=== PATIENT | female | born 1990 | race Two or more races ===

== ENCOUNTER → 2017-03-02 | Outpatient (REF) | payer OTHER | LOC: M LAB REF 19:53 | PROVIDERS: ATTEND Physician Assistant | DX: J02.9 Acute pharyngitis, unspecified (principal) ==

== ENCOUNTER → 2017-05-17 | Outpatient (REF) | payer OTHER ==
[~2017-05-17] MED LIST: NO MEDICATIONS
== END ==
LOC: M SFHCWAGY 14:04
PROVIDERS: ATTEND Nurse Practitioner Women's Health
DX: Z12.4 Encounter for screening for malignant neoplasm of cervix (principal); R87.613 High grade squamous intraepithelial lesion on cytologic smear of cervix (HGSIL)

== ENCOUNTER → 2017-05-23 | Outpatient (REF) | payer OTHER | LOC: M SFHCWAGY 14:19 | PROVIDERS: ATTEND Nurse Practitioner Women's Health | DX: R87.613 High grade squamous intraepithelial lesion on cytologic smear of cervix (HGSIL) (principal) ==

== ENCOUNTER 2017-05-27 11:59 | Day surgery (SDC) | payer OTHER ==
[~2017-05-27] VITALS: Ht 162.6 cm; Wt 87.5 kg
[2017-05-27] MEDS ORDERED: LIDOCAINE 1% SDV 5 ML VIAL SQ ONE (12:30)
[2017-05-27] MEDS ORDERED: LR 1,000 ML IV ONE (12:30)
[2017-05-27 12:49] LABS: CONTROL LINE UCG INT CTR LINE PRESENT
[2017-05-27] MEDS ORDERED: NEOSTIGMINE 10 MG/10 ML VIAL (J2710) As Ordered ONE (12:58)
[2017-05-27] MEDS ORDERED: MIDAZOLAM INJ 2 MG/2 ML VIAL (J2250) As Ordered ONE (12:58)
[2017-05-27] MEDS ORDERED: GLYCOPYRROLATE INJ 0.2 MG/ML 2 ML VIAL As Ordered ONE (12:58)
[2017-05-27] MEDS ORDERED: LIDOCAINE 2% INJ 100 MG/5 ML SDV (FOR ANES.) As Ordered ONE (12:58)
[2017-05-27] MEDS ORDERED: PROPOFOL 200 MG/20 ML VIAL As Ordered ONE (12:58)
[2017-05-27] MEDS ORDERED: ONDANSETRON 4MG/2ML VIAL (J2405) As Ordered ONE ×2 (12:58→17:14)
[2017-05-27] MEDS ORDERED: ROCURONIUM BROMIDE 50 MG/5 ML VIAL As Ordered ONE (12:58)
[2017-05-27] MEDS ORDERED: fentaNYL 100 MCG/2 ML INJECTION (J3010) As Ordered ONE ×2 (12:59→15:57)
[2017-05-27] MEDS ORDERED: PERC5TAB12 PO (14:13)
[2017-05-27] MEDS ORDERED: BUPIVACAINE HCL 0.25% 30 ML VIAL As Ordered ONE (14:49)
[2017-05-27] MEDS ORDERED: KETOROLAC 60 MG/2 ML VIAL (J1885) As Ordered ONE (15:34)
[2017-05-27] MEDS ORDERED: ALBUTEROL SULFATE 2.5 MG/0.5 ML INH NEB SOLN As Ordered ONE (15:49)
[2017-05-27] MEDS ORDERED: LR 1,000 ML IV SCH ×2 (16:00→16:15)
[2017-05-27] MEDS ORDERED: ONDANSETRON 4MG/2ML VIAL (J2405) IV PRN (16:00)
[2017-05-27] MEDS: fentaNYL 100 MCG/2 ML INJECTION (J3010) IV PRN ×4 (16:00→16:15)
[2017-05-27] MEDS ORDERED: PERCOCET 5MG/325MG TAB PO PRN (16:00)
[2017-05-27] MEDS ORDERED: ALBUTEROL SULFATE 2.5 MG/0.5 ML INH NEB SOLN INH ONE (16:30)
[2017-05-27] MEDS ORDERED: PERCOCET 5MG/325MG TAB As Ordered ONE (17:12)
[2017-05-27 18:45] VITALS: BP 120/76
--- NOTE | 2017-05-30 09:15 | RO ---
DATE OF PROCEDURE: 05/27/2017 PREOPERATIVE DIAGNOSIS: Undesired fertility. POSTOPERATIVE DIAGNOSIS: Undesired fertility. PROCEDURE: Laparoscopic tubal ligation with Falope rings. SURGEON: Dr. Kyle Crespo SHOT COAT TENDER: ANESTHESIA: General endotracheal. ESTIMATED BLOOD LOSS: Minimal. FINDINGS: Normal pelvis with the exception of some mild adhesions of the uterus to the anterior abdominal wall. Normal fallopian tubes and ovaries. Normal upper abdomen. Omental adhesions to the midline below the umbilicus. OPERATIVE SUMMARY: The patient was taken to the operating room where general endotracheal anesthesia was induced. She was prepped and draped in a sterile fashion in the dorsal lithotomy position. The bladder was emptied with a catheter. A sponge stick was placed. A periumbilical incision was made with the scalpel. A Veress needle was placed through this incision while tenting up on the skin of the abdomen. Intra-abdominal location of the Veress needle was assessed by the use of a saline filled syringe. A pneumoperitoneum was created. The Veress needle was removed. A 5 mm trocar using Visiport was inserted through this incision. An 8 mm suprapubic port was placed under direct visualization without difficulty. A blunt probe was used to survey pelvic structures. A Falope ring was applied to the mid portion of each fallopian tube. An excellent application was noted. The pneumoperitoneum was released. All instruments were removed. The skin was closed with #4-0 Monocryl subcuticular sutures. Sponge, instrument and needle counts were correct.
== END 2017-05-27 18:55 | disposition home or self-care (01) ==
LOC: M SDC 11:59
PROVIDERS: ATTEND Specialist
DX: Z30.2 Encounter for sterilization (principal); F17.210 Nicotine dependence, cigarettes, uncomplicated
CPT/HCPCS: 36415; 58671; 84703; 85014; 85018; A4264; J1885; J2250; J2405; J2710; J3010

== ENCOUNTER → 2017-07-21 | Outpatient (REF) | payer OTHER | LOC: M LAB REF 08:22 | DX: R87.613 High grade squamous intraepithelial lesion on cytologic smear of cervix (HGSIL) (principal) ==

== ENCOUNTER 2018-11-27 15:20 | Emergency (ER) | payer MEDICAID, OTHER ==
[~2018-11-27] VITALS: Ht 162.6 cm; Wt 68.2 kg
[~2018-11-27 15:20] MED LIST changes: +PERC5TAB12 PO
[2018-11-27] MEDS ORDERED: ADACEL/BOOSTRIX VACCINE (DIPHTH/PERTUSS/ACELL/TETANUS)0.5ML SYR (90715) IM ONE (16:00)
[2018-11-27 16:41] VITALS: BP 128/83
[2018-11-27] MEDS ORDERED: IBUPROFEN 800 MG TAB PO ONE (16:45)
[2018-11-28] MEDS ORDERED: NEOSPORIN TOP OINT 15GM TOP ONE (09:00)
== END 2018-11-27 16:42 | disposition home or self-care (01) ==
LOC: M ED 15:20
DX: S91.214A Laceration without foreign body of right lesser toe(s) with damage to nail, initial encounter (principal); W22.8XXA Striking against or struck by other objects, initial encounter; Y92.018 Other place in single-family (private) house as the place of occurrence of the external cause; Z88.5 Allergy status to narcotic agent

== ENCOUNTER 2018-12-17 10:02 | Emergency (ER) | payer MEDICAID, OTHER ==
[~2018-12-17] VITALS: Ht 154.9 cm; Wt 68.2 kg
[2018-12-17] MEDS ORDERED: LIDOCAINE 1% MDV 20ML VIAL IM ONE (14:00)
[2018-12-17 14:27] VITALS: BP 138/79
[2018-12-17] MEDS ORDERED: NORC1TAB7 PO ×3 (14:35→14:44)
[2018-12-17] MEDS ORDERED: AUGM875T28 PO (14:35)
--- NOTE | 2018-12-17 16:48 | IPN ---
DATE: 12/17/2018 28-year-old female with four days of worsening vulvar pain and swelling. She presented to the emergency room (ER) at [facility] where she was seen by her provider. She denies drainage from the swollen area. She has had this once before. She denies fevers. OBJECTIVE: Afebrile. Blood pressure (BP) 130/74, pulse 84. She appears uncomfortable to observation. Head and neck exam is normal. Lungs are clear. Heart: Regular rate and rhythm. Abdomen: Nontender, soft, not distended. 2 cm geraldo-clitoral abscess with induration of the anterior labial minora and surrounding cellulitis and clitoral cueto. PROCEDURE NOTE: The patient was consented for incision and drainage of geraldo-clitoral abscess. The area was prepped with Betadine solution. The area was injected with 3 mL of 1% lidocaine. A scalpel was used to excise the abscess overlying the clitoral cueto. A large amount of pus extruded from the incision. Bacterial culture was performed. Excess pus was expressed from the wound. The patient tolerated the procedure well. ASSESSMENT: 28-year-old with geraldo-clitoral abscess status post incision and drainage in the emergency department. PLAN: Start Augmentin 875 mg twice a day for 7 days. Percocet or similar narcotic for pain relief for the next couple of days. The patient will followup in the office in one week. Of note, the patient is overdue for a Pap smear test. Perhaps this could be done at her followup office visit if she is not too uncomfortable at that time. OLAMIDE
== END 2018-12-17 14:58 | disposition home or self-care (01) ==
LOC: M ED 10:02
DX: N90.89 Other specified noninflammatory disorders of vulva and perineum (principal); Z11.51 Encounter for screening for human papillomavirus (HPV); Z87.59 Personal history of other complications of pregnancy, childbirth and the puerperium; K80.20 Calculus of gallbladder without cholecystitis without obstruction; Z87.891 Personal history of nicotine dependence; F12.10 Cannabis abuse, uncomplicated; Z88.5 Allergy status to narcotic agent

== ENCOUNTER → 2018-12-25 | Outpatient (REF) | payer OTHER ==
[~2018-12-25] MED LIST changes: +AUGM875T28 PO; +NORC1TAB7 PO
== END ==
LOC: M LAB REF 13:17
PROVIDERS: ATTEND Specialist
DX: N89.0 Mild vaginal dysplasia (principal); Z12.4 Encounter for screening for malignant neoplasm of cervix

== ENCOUNTER → 2019-03-21 | Outpatient (REF) | payer OTHER | LOC: M LAB REF 09:21 | PROVIDERS: ATTEND Nurse Practitioner Family | DX: N39.0 Urinary tract infection, site not specified (principal) ==

== ENCOUNTER → 2020-04-04 | Outpatient (REF) | payer OTHER | LOC: M SFHCWAGY 17:03 | PROVIDERS: ATTEND Specialist | DX: Z20.2 Contact with and (suspected) exposure to infections with a predominantly sexual mode of transmission (principal) ==

== ENCOUNTER 2020-05-04 11:05 | Emergency (ER) | payer OTHER ==
[~2020-05-04] VITALS: Ht 162.6 cm; Wt 80.3 kg
[2020-05-04] MEDS ORDERED: FLUO20CA22 PO (11:12)
[2020-05-04] MEDS ORDERED: LIDOCAINE 1% SDV 5ML VIAL DILUENT ONE (11:45)
[2020-05-04] MEDS ORDERED: cefTRIAXone SOD 1GM VIAL (J0696 PER 250MG) IM ONE (11:45)
[2020-05-04 12:05] LABS: BASO % 0.3 % (0.0-1.0); EOS % 0.3 % (0.0-3.0); HEMOGLOBIN 13.9 g/dl (12.0-15.5); LYMPH # 0.8 10^3/uL (1.5-5.0); LYMPH % 6.4 % (24.0-44.0); MEAN CORPUSCULAR HEMOGLOBIN 31.4 pg (27.0-33.0); MEAN CORPUSCULAR HGB CONC 33.1 g/dl (32.0-36.5); MONO % 8.5 % (0.0-5.0); NEUTROPHILS # 10.1 10^3/uL (1.5-8.5); NEUTROPHILS % 84.2 % (36.0-66.0); PLATELET COUNT, AUTOMATED 150 10^3/uL (150-450); RED BLOOD COUNT 4.42 10^6/uL (4.00-5.40); WHITE BLOOD COUNT 11.9 10^3/uL (4.0-10.0)
[2020-05-04 12:26] LABS: BLOOD UREA NITROGEN 12 MG/DL (7-18); CALCIUM LEVEL 9.1 MG/DL (8.5-10.1); CARBON DIOXIDE LEVEL 31 MEQ/L (21-32); CHLORIDE LEVEL 104 MEQ/L (98-107); CREATININE FOR GFR 0.78 MG/DL (0.55-1.30); GLOMERULAR FILTRATION RATE > 60.0 (>60); GLUCOSE, FASTING 100 MG/DL (70-100); POTASSIUM SERUM 3.4 MEQ/L (3.5-5.1); SODIUM LEVEL 138 MEQ/L (136-145)
[2020-05-04] MEDS ORDERED: CEFD1CAP8 PO (13:16)
[2020-05-04] MEDS ORDERED: ONDA4TAB6 PO (13:16)
[2020-05-04 13:29] VITALS: BP 143/76
== END 2020-05-04 13:31 | disposition home or self-care (01) ==
LOC: M ED 11:05
DX: N15.9 Renal tubulo-interstitial disease, unspecified (principal); F32.9 Major depressive disorder, single episode, unspecified; F17.200 Nicotine dependence, unspecified, uncomplicated; Z88.5 Allergy status to narcotic agent; Z79.899 Other long term (current) drug therapy
CPT/HCPCS: 36415; 80048; 81001; 85025; 87088; 87186; 99284; J0696

== ENCOUNTER 2022-09-18 10:26 | Emergency (ER) | payer OTHER ==
[~2022-09-18] VITALS: Ht 162.6 cm; Wt 84.6 kg
[~2022-09-18 10:26] MED LIST changes: +CEFD300C41 PO; +FLUO20CA22 PO; +ONDA4TAB6 PO
[2022-09-18] MEDS ORDERED: ACET500P3 PO (10:45)
[2022-09-18] MEDS ORDERED: IBUP-1114 PO (10:45)
[2022-09-18] MEDS ORDERED: ALBUTEROL SULFATE 2.5MG/0.5ML INH NEB SOLN NEB ONE (11:00)
[2022-09-18] MEDS ORDERED: AMOX875T2 PO (12:12)
[2022-09-18] MEDS ORDERED: VENTAER INH (12:12)
[2022-09-18 12:24] VITALS: BP 118/72
== END 2022-09-18 12:26 | disposition home or self-care (01) ==
LOC: M ED 10:26
DX: J20.9 Acute bronchitis, unspecified (principal); J01.90 Acute sinusitis, unspecified; F41.9 Anxiety disorder, unspecified; F32.A Depression, unspecified; Z88.5 Allergy status to narcotic agent

== ENCOUNTER → 2023-01-14 | Outpatient (REF) | payer OTHER ==
[~2023-01-14] MED LIST changes: +ACET500P3 PO; +AMOX875T2 PO; +IBUP-1114 PO; +VENTAER INH
[2023-01-14 12:06] LABS: BASO % 0.6 % (0.0-1.0); EOS # 0.1 10^3/uL (0.0-0.5); EOS % 2.6 % (0.0-3.0); HEMATOCRIT 43.2 % (36.0-47.0); HEMOGLOBIN 14.6 g/dl (12.0-15.5); LYMPH # 1.3 10^3/uL (1.5-5.0); LYMPH % 24.1 % (24.0-44.0); MEAN CORPUSCULAR HEMOGLOBIN 31.3 pg (27.0-33.0); MEAN CORPUSCULAR HGB CONC 33.8 g/dl (32.0-36.5); MEAN CORPUSCULAR VOLUME 92.7 fl (80.0-96.0); MONO # 0.4 10^3/uL (0.0-0.8); MONO % 7.1 % (2.0-8.0); NEUTROPHILS # 3.5 10^3/uL (1.5-8.5); NEUTROPHILS % 65.2 % (36.0-66.0); PLATELET COUNT, AUTOMATED 177 10^3/uL (150-450); RED BLOOD COUNT 4.66 10^6/uL (4.00-5.40); WHITE BLOOD COUNT 5.4 10^3/uL (4.0-10.0)
[2023-01-14 12:22] LABS: HEMOGLOBIN A1c 4.4 % (4.0-6.0)
[2023-01-14 12:34] LABS: TOTAL 25(OH) VITAMIN D 23.6 NG/ML (20.0-100.0)
[2023-01-14 12:36] LABS: THYROID STIMULATING HORMONE 1.998 uIU/ML (0.55-4.78)
[2023-01-14 12:40] LABS: ALKALINE PHOSPHATASE 63 U/L (46-116); ALT/SGPT 24 U/L (7.0-40); AST/SGOT 17 U/L (<34); BILIRUBIN,TOTAL 1.4 MG/DL (0.3-1.2); BLOOD UREA NITROGEN 18 MG/DL (9-23); CALCIUM LEVEL 9.5 MG/DL (8.5-10.1); CARBON DIOXIDE LEVEL 27 MMOL/L (20-31); CHLORIDE LEVEL 104 MMOL/L (98-107); CHOLESTEROL LEVEL 150 MG/DL (<200); CHOLESTEROL RISK RATIO 4.02 (<5); CREATININE FOR GFR 0.64 MG/DL (0.55-1.30); GLOMERULAR FILTRATION RATE > 60.0 (>60); GLUCOSE, FASTING 83 MG/DL (60-100); HDL CHOLESTEROL 37.3 MG/DL (>40); LDL CHOLESTEROL 69.3 MG/DL (<100); NON-HDL-C 112.7 MG/DL; POTASSIUM SERUM 3.8 MMOL/L (3.5-5.1); SODIUM LEVEL 140 MMOL/L (136-145); TOTAL PROTEIN 7.1 G/DL (5.7-8.2); TRIGLYCERIDES LEVEL 217 MG/DL (<150)
== END ==
LOC: M LAB REF 11:31
PROVIDERS: ATTEND Nurse Practitioner Family
DX: E55.9 Vitamin D deficiency, unspecified (principal); E66.3 Overweight; R53.83 Other fatigue; Z11.9 Encounter for screening for infectious and parasitic diseases, unspecified

== ENCOUNTER → 2023-01-20 | Outpatient (CLI) | payer OTHER | LOC: M WHC 08:11 | PROVIDERS: ATTEND Nurse Practitioner Family | DX: K80.20 Calculus of gallbladder without cholecystitis without obstruction (principal); K76.0 Fatty (change of) liver, not elsewhere classified; R10.11 Right upper quadrant pain ==

== ENCOUNTER 2023-04-18 09:38 | Day surgery (SDC) | payer OTHER ==
[~2023-04-18] VITALS: Ht 162.6 cm; Wt 82.6 kg
[~2023-04-18 09:38] MED LIST changes: -CEFD300C41 PO; +CEFD300C42 PO; +INDOCYANINE GREEN 25MG VIAL (IC-GREEN) As Ordered ONE; +LIDOCAINE 2% 100MG/5ML SDV (FOR ANES.) As Ordered ONE; +MIDAZOLAM INJ 2MG/2ML VIAL As Ordered ONE; +ROCURONIUM BROMIDE 50MG/5ML VIAL As Ordered ONE; +fentaNYL 100 MCG/2 ML INJECTION As Ordered ONE; +propofoL 200 MG/20 ML VIAL As Ordered ONE
[2023-04-18] MEDS ORDERED: ceFAZolin SOD 2 GM in IV 1 EA IV ONE (10:25)
[2023-04-18] MEDS ORDERED: INDOCYANINE GREEN 25MG VIAL (IC-GREEN) IV ONE (10:25)
[2023-04-18] MEDS ORDERED: HEPARIN SOD (PORCINE) 5000UNITS/ML 1ML VIAL/SYRINGE SQ ONE (10:25)
[2023-04-18] MEDS ORDERED: ACETAMINOPHEN 1000MG 100ML IV BAG As Ordered ONE (11:32)
[2023-04-18] MEDS ORDERED: METOCLOPRAMIDE INJ 10MG/2ML VIAL As Ordered ONE (11:32)
[2023-04-18] MEDS ORDERED: KETOROLAC 60MG 2ML VIAL As Ordered ONE (11:32)
[2023-04-18] MEDS ORDERED: ONDANSETRON 4MG 2ML VIAL As Ordered ONE (11:32)
[2023-04-18] MEDS ORDERED: PHENYLephrine 500MCG 5ML (100MCG/ML) SYRINGE As Ordered ONE (11:36)
[2023-04-18] MEDS ORDERED: diphenhydrAMINE 50MG/ML VIAL IV PRN (12:25)
[2023-04-18] MEDS ORDERED: METOCLOPRAMIDE INJ 10MG/2ML VIAL IV PRN (12:25)
[2023-04-18] MEDS ORDERED: fentaNYL 100 MCG/2 ML INJECTION IV PRN (12:25)
[2023-04-18] MEDS ORDERED: MEPERIDINE 25 MG/ML 1ML VIAL IV PRN (12:25)
[2023-04-18] MEDS ORDERED: ONDANSETRON 4MG 2ML VIAL IV PRN (12:25)
[2023-04-18] MEDS ORDERED: fentaNYL 100 MCG/2 ML INJECTION As Ordered ONE (12:26)
[2023-04-18] MEDS ORDERED: OXYC1TAB23 PO (12:34)
[2023-04-18] MEDS: HYDROMORPHONE HCL 0.5 MG/ 0.5 ML SYRINGE IV PRN ×2 (12:51→13:14)
[2023-04-18] MEDS: oxyCODONE 5MG TAB PO PRN ×2 (12:51→13:23)
[2023-04-18] MEDS ORDERED: ROCURONIUM BROMIDE 50MG/5ML VIAL As Ordered ONE (13:18)
[2023-04-18] MEDS ORDERED: ePHEDrine SULFATE 25 MG/5 ML(5MG/ML) SYRINGE As Ordered ONE (13:19)
[2023-04-18 14:45] VITALS: BP 140/98; TEMP 97.7; O2SAT 96
== END 2023-04-18 15:05 | disposition home or self-care (01) ==
LOC: M SDC 09:38
PROVIDERS: ATTEND Surgery
DX: K80.10 Calculus of gallbladder with chronic cholecystitis without obstruction (principal); Z88.5 Allergy status to narcotic agent; F17.210 Nicotine dependence, cigarettes, uncomplicated
CPT/HCPCS: 47563; 88304; J0131; J0665; J1100; J1170; J1200; J1885; J2250; J2371; J2405; J2765; J3010; Q9968; S2900

== ENCOUNTER → 2024-04-18 | Outpatient (REF) | payer OTHER ==
[~2024-04-18] MED LIST changes: +CEFD1CAP9 PO; -CEFD300C42 PO; +FLUO-365 PO; -FLUO20CA22 PO; -INDOCYANINE GREEN 25MG VIAL (IC-GREEN) As Ordered ONE; -LIDOCAINE 2% 100MG/5ML SDV (FOR ANES.) As Ordered ONE; -MIDAZOLAM INJ 2MG/2ML VIAL As Ordered ONE; +ONDA-282 PO; -ONDA4TAB6 PO; +OXYC1TAB23 PO; -ROCURONIUM BROMIDE 50MG/5ML VIAL As Ordered ONE; -fentaNYL 100 MCG/2 ML INJECTION As Ordered ONE; -propofoL 200 MG/20 ML VIAL As Ordered ONE
[2024-04-18 15:11] LABS: CHOLESTEROL RISK RATIO 4.07 (<5); LDL CHOLESTEROL 93.2 MG/DL (<100)
[2024-04-18 15:14] LABS: TOTAL 25(OH) VITAMIN D 14.7 NG/ML (20.0-100.0)
== END ==
LOC: M LAB REF 13:30
PROVIDERS: ATTEND Nurse Practitioner Family
DX: E55.9 Vitamin D deficiency, unspecified (principal); E78.1 Pure hyperglyceridemia

== ENCOUNTER 2024-07-20 20:38 | Emergency (ER) | payer OTHER ==
[~2024-07-20] VITALS: Ht 162.6 cm; Wt 82.5 kg
[2024-07-20 20:42] VITALS: BP 141/85; TEMP 98.8; O2SAT 99
== END 2024-07-20 23:45 | disposition left against medical advice (07) ==
LOC: M ED 20:38
DX: Z53.21 Procedure and treatment not carried out due to patient leaving prior to being seen by health care provider (principal)